=== PATIENT | female | born 1970 ===

== ENCOUNTER → 2020-01-23 | Outpatient (CLI) | payer OTHER ==
[~2020-01-23] VITALS: Ht 160 cm; Wt 68.0 kg
[~2020-01-23] MED LIST: AMBIEN 10 MG TA10 MG PO; IMITREX100 MG PO; LIPITOR40 MG PO; NORCO 10-325 T1 EAC1 PO; NORCO 10-325 T1 EACH PO; TOPAMAX100 MG PO; ZOLOFT 50 MG TA50 M1 PO
--- NOTE | ~2020-01-23 | HPC ---
[facility] [place] [address] PAIN MANAGEMENT CONSULTATION Name: OMAR CARRERA Room #: REG [facility] M..#: [id number] Admission: 01/23/20 Attend Phys: Gus Daugherty DO Discharge: Date of : 70 Report #: [id number] THIS REPORT FOR: cc: MILAN AVILA Physician not on staff uGs Daugherty DO ~ CC: Gus Cordova MD Physician staff DATE OF SERVICE: 01/23/2020 REFERRING PHYSICIAN: Payal Cordova MD CHIEF COMPLAINT: Low back pain, right lower extremity pain. HISTORY OF PRESENT ILLNESS: As you know, the patient is a very pleasant 49-year-old female who has been followed by [facility] at our [facility] office for years. She originally was seen by my partner, Dr. Robson Daugherty, who trial the patient with epidural injections and medication management. When Dr. Daugherty relocated to his [facility], the patient was transferred the care to my services there at [facility]. We have been treating her with medication management, and ultimately, she underwent medial branch nerve blocks of the right L3, L4 and L5 with good efficacy. She completed 2 series of medial branch blocks with excellent benefit. She returned to the clinic to undergo radiofrequency lesioning of the medial branch nerves on the right side when we had complications with our machinery. This precluded us from completing the radiofrequency lesioning process. It was after that appointment that the patient found out she was out of network for the clinic at [facility] with changes in her insurance and she was left with fairly extensive bills. She transferred her care to our clinic here at [facility] as they have contracts established with her insurance. She follows up today in followup visit reporting pain score at about 7/10. She is interested in undergoing radiofrequency lesioning of the right L3, L4 and L5 medial branch nerves as she sought excellent benefit with the medial branch blocks, both performed at [facility]. She returns to discuss the options for undergoing this procedure here at [place]. ALLERGIES: MINOCYCLINE, SULFA AND PROCARDIA. CURRENT MEDICATIONS: Atorvastatin, Imitrex, ibuprofen, tizanidine, Topamax, Lexapro, vitamin E, spironolactone, and hydrocodone. SOCIAL HISTORY: The patient denies tobacco, alcohol or IV illicit drug use. [address] [address] PAIN MANAGEMENT CONSULTATION Name: OMAR CARRERA Room #: REG EMMANUELLE oL#: [id number] Admission: 01/23/20 Attend Phys: Gus Daugherty DO Discharge: Date of : 70 Report #: [id number] She reports she is working, not receiving workmen's compensation, unaccompanied today. IMAGING: No new imaging available. PHYSICAL EXAMINATION: VITAL SIGNS: Blood pressure 123/85, pulse 79, respiratory rate 16 and unlabored. The patient is 100% on room air. Height 5 feet 3 inches tall, weight 150 pounds, BMI calculated 26.6. GENERAL: Well-developed, well-nourished, well-hydrated 49-year-old female appearing her stated age. Pain is rated today at around 7/10. HEENT: Normocephalic, atraumatic. Pupils equal, round and reactive to light. Extraocular muscles are intact. NEUROLOGIC: Speech fluent. The patient deemed a good historian. LUNGS: Clear, no wheeze, rhonchi or rales. CARDIOVASCULAR: Regular. No appreciable gallop or rub. ABDOMEN: Soft, mildly obese, normoactive bowel sounds. EXTREMITIES: Show no clubbing, no cyanosis. No appreciable edema. MUSCULOSKELETAL: Lower extremity strength equal and symmetrical 5/5, intact to light touch from L1 through S2 dermatomes. Seated straight leg raising negative. Supine straight leg raising negative. Reuben's test is negative. Modified Gaenslen's positive for axial low back pain over the right. There is some mild palpatory tenderness over the right facet joint at L4-L5 and L5-S1 when compared to left. Lumbar provocation testing including extension, rotation, and lateral flexion to the right, all intensify axial back pain consistent with facet arthropathy. ASSESSMENT: 1. Lumbosacral spondylosis without radiculopathy. 2. Facet arthropathy of the lumbar spine. 3. Chronic low back pain. 4. Opioid dependency. PLAN: 1. The patient returns today in followup visit here at our [facility] office to discuss the possibility of moving forward with radiofrequency lesioning of medial branch nerves on the right side. The patient successfully completed 2 medial branch block procedures at my [facility] office, both of which provided about 80% improvement in overall pain consistent with medial branch mediated facet arthropathy pain. The patient was established a radiofrequency lesioning date at our [facility] office, but due to complications with our machinery, she was unable to complete the process. We had to abort the procedure midway as the radiofrequency lesioning device was causing electrical current to be flowing through the patient even though the device was not on. We aborted the procedure that day and had plans to have the patient return in 2 weeks. The patient in the interim received bills from [address] [address] PAIN MANAGEMENT CONSULTATION Name: OMAR CARRERA Room #: REG [facility]#: [id number] Admission: 01/23/20 Attend Phys: Gus Daugherty DO Discharge: Date of : 70 Report #: [id number] [facility], stating that coverage of the procedure was not offered through her insurance and the bills became quite problematic. She changed her care to our clinic here at [facility], as we have agreements with her insurance company for a lesser charge. The patient has returned today to discuss this as an option. It has come to our attention that her insurance has 3 levels. If she goes to the [facility], she would be paying a 10% cost of the procedure. If she follows with us here at [facility], she pays 20% cost and I believe at the [facility] systems, it was a 30% cost. We discussed this with the patient today. We were unable to give an idea of exact cost of the procedure here at [facility], but she does wish to contact our billing office in regard to this issue before moving forward. 2. We have discussed with the patient that if she wishes to undergo radiofrequency lesioning, she could do so through the [facility] system. We would recommend their Pain Clinic at [facility] as a possible treatment site. This would allow the patient to undergo radiofrequency lesioning of the medial branch nerves on the right side and gain excellent analgesic benefit as seen with the medial branch blocks. She is going to consider this as an option. 3. We have planned to provide the patient with continuation of medication management at this time with the understanding that ultimately will be weaning off of opioids, especially if we gain the efficacy we had with the medial branch blocks after radiofrequency lesioning. The patient is agreeable with the weaning of medications once radiofrequency lesioning process has been completed. The following prescriptions were provided to the patient today. We reviewed the fact that opiate medications are being used to provide analgesia adequate to support activities of daily living, not attempting to achieve a specific pain score on the 0-10 Visual Analog Scale. The current opiate medications are providing sufficient analgesia to allow the patient to participate in activities of daily living. The patient is not exhibiting any aberrant behavior suggestive of drug diversion. The patient is not having any adverse reactions to medications. The patient is not suffering from daytime somnolence or mental acuity changes. The patient is managing opiate-induced constipation with appropriate ioka-hgh-pywsnud agents and dietary considerations. The patient was counseled on concern for caution with operating a motor vehicle while using opiate medications. A physical exam was performed and the patient's functional status was evaluated. All patients with back pain were advised against the bed rest greater than 4 days and were advised to return to normal activities. Pain score assessment was noted and the treatment plan was reviewed with the patient. All current medications, both prescribed and OTC were reviewed and reconciled on the electronic medical record. Tobacco screening was accomplished and smoking cessation was advised when indicated. BMI was noted and diet/exercise modification was recommended for all patients following outside normal parameters. [address] [address] PAIN MANAGEMENT CONSULTATION Name: KANDI CARRERAN Room #: REG EMMANUELLE Blanchard#: [id number] Admission: 01/23/20 Attend Phys: Gus Daugherty DO Discharge: Date of : 70 Report #: [id number] I reviewed with the patient today their responsibilities to safeguard prescription medications, reviewed their responsibility to utilize medications only as prescribed by the physician. They are to seek and receive pain medications only from 1 physician group ( [facility]). They are to use 1 pharmacy and keep the clinic informed if they change pharmacies. Their responsibilities include making followup visits in a timely fashion and to avoid abrupt discontinuation of medication usage. Their responsibilities further include bringing their medications (bottles from the pharmacy with residual pills) to the visit for possible confirmation of pill counts and the patient understands it is their responsibility to submit to random drug screens to ensure both that the medications prescribed are present, and that no other controlled substances are present. All prescriptions provided today were generated electronically. The patient was provided prescription of hydrocodone/acetaminophen 10/325 one tab p.o. q.6 hours p.r.n. for pain. I have given the patient #120 tablets to release today, 4 weeks from today, 8 weeks from today, 3 months' worth of medication. All prescriptions provided via e-scribed to local pharmacy. We will see the patient back in followup visit in 3 months for medication management and adjustments in the therapy, assuming she has completed radiofrequency lesioning through the [facility] system. If she wishes to return to our clinic for radiofrequency lesioning, we will accommodate as quickly as possible her return visit to undergo that procedure. By: [id number] Gus Daugherty DO /nt
[2020-01-23 12:38] VITALS: BP 123/85
--- NOTE | 2020-01-23 12:51 | NUR ---
Pain Clinic Assessment: 1. History of Osteoarthritis: SPINE History of Rheumatoid Arthritis: Not Applicable 2. Height: 5 ft. 3 in. 160.0 cm. Weight: 150.0 lb. oz. 68.040 kg. Patient's BMI: 26.6 3. Vital Signs: BP: 123/85 Pulse: 79 Resp: 16 Temp: 02 Sat: 100 ECG Mon: 4. Pain Intensity: 7 5. Fall Risk: Dizziness: N Needs help standing or walking: N Fallen in the last 3 months: N Fall risk comments: 6. Patient on Blood Thinner: None 7. History of Hypertension: Y 8. Opioid Therapy greater than 6 weeks: Y Opiate Contract Signed: 9. Risk Assessment Tool Provided: LOW 10. Functional Assessment Tool: 11. Recreational Drug Use: Never Drug Type: Tobacco Use: Never Smoker Tobacco Type: Amount or Packs/day: How Many Years: Alcohol Use: No Frequency: Quant:
== END ==
LOC: PAIN 06:55
PROVIDERS: ATTEND Anesthesiology Pain Medicine
DX: M47.817 Spondylosis without myelopathy or radiculopathy, lumbosacral region (principal); M79.604 Pain in right leg; F11.20 Opioid dependence, uncomplicated; Z88.8 Allergy status to other drugs, medicaments and biological substances; Z79.899 Other long term (current) drug therapy

== ENCOUNTER → 2020-05-06 | Outpatient (CLI) | payer OTHER ==
[~2020-05-06] VITALS: Ht 160 cm; Wt 77.9 kg
[~2020-05-06] MED LIST changes: +ADVIL200 M1 PO; +CLONAZEPAM 0.50.5 M1 PO; +LEXAPRO20 MG PO; +METAMUCIL0.4 GM; +SUPER THERAVIT1 EACH PO
--- NOTE | ~2020-05-06 | HPC ---
[facility] [place] [address] PAIN MANAGEMENT CONSULTATION Name: OMAR CARRERA Room #: REG EMMANUELLE ..#: [id number] Admission: 05/06/20 Attend Phys: Gus Daugherty DO Discharge: Date of : 70 Report #: [id number] THIS REPORT FOR: cc: Daria Zaman MD, Ammar MD Johnson, James E. DO ~ DATE OF SERVICE: 05/07/2020 REFERRING PHYSICIAN: Dr. Joel Watson. CHIEF COMPLAINT: Low back pain, right buttock and posterolateral thigh pain. HISTORY OF PRESENT ILLNESS: As you know, the patient is a 49-year-old female followed by [facility] since her initial visits at our [facility] office. She is followed by my partner originally Dr. Robson Daugherty and by myself for her chronic ongoing pain issues. It has been determined the patient is suffering from facet arthropathy of the lumbar spine, but due to her current insurance, she is unable to undergo procedures with our clinic as coverage is not available. She has to follow up with her healthcare system to receive these injections. She returns today to discuss whether or not she should continue to look towards medial branch blocks and radiofrequency lesioning. As indicated in prior evaluations, the patient did very well with medial branch blocks, in fact undergoing 2 different medial branch blocks before we realized that coverage was not going to be available for her at our clinics. We had planned for the patient to undergo radiofrequency lesioning as she saw significant improvement with her symptoms with the medial branch blocks, but again due to coverage, we could not perform the procedure. She returns to discuss possibility of undergoing procedure at [facility] pain management clinic, but is also requesting refill of medications. She is placing pain score today at 7/10. She has not had any new injury or trauma. ALLERGIES: MINOCYCLINE, SULFA AND PROCARDIA. CURRENT MEDICATIONS: Atorvastatin, Imitrex, ibuprofen, tizanidine, Topamax, Lexapro, vitamin E, spironolactone and hydrocodone. SOCIAL HISTORY: The patient denies tobacco, alcohol, IV or illicit drug use. She is working, not receiving workmen's compensation, unaccompanied today. IMAGING: No new imaging available. PHYSICAL EXAMINATION: VITAL SIGNS: Blood pressure 118/81, pulse 94, respiratory rate 16 and unlabored. The patient is 98% on room air. Height 5 feet 3 inches tall, weight 171.8 pounds, BMI calculated 30.4. GENERAL: Well-developed, well-nourished, well-hydrated 49-year-old female, [place] [address] PAIN MANAGEMENT CONSULTATION Name: OMAR CARRERA Room #: REG CL Lo#: [id number] Admission: 05/06/20 Attend Phys: Gus Daugherty DO Discharge: Date of : 70 Report #: [id number] appears stated age, pain is rated around 7/10. HEENT: Normocephalic, atraumatic. Pupils equal, round and reactive. The patient is wearing a mask in compliance with COVID-19 regulations. EXTREMITIES: Show no clubbing, no cyanosis. No appreciable edema. MUSCULOSKELETAL: Lower extremity strength is symmetrical 5/5, intact to light touch from L1 through S2 dermatomes. Seated straight leg raising negative. Supine straight leg raising negative. Reuben's test is negative. Modified Gaenslen's positive for axial low back pain. ASSESSMENT: 1. Lumbosacral spondylosis without radiculopathy. 2. Facet arthropathy of the lumbar spine. 3. Chronic low back pain. 4. Opioid dependency. PLAN: 1. The patient returns today in followup visit to discuss whether or not she should progress with interventional treatments or should she move forward with surgical options. Given that the symptoms that she is experiencing are due to facet arthropathy, I would not recommend surgical options at this juncture. She may be a candidate down the line, but I would recommend more conservative treatment utilizing radiofrequency lesioning. The patient sought excellent benefit with medial branch blocks x 2, but due to third [employer] party payer restrictions, the patient could not move forward with radiofrequency lesioning as she is not able to receive coverage at any of her hospitals, as she is part of the [facility]. She will need to seek evaluation through their pain clinics for treatment. We would recommend strongly the patient undergo medial branch radiofrequency lesioning as the first treatment course. They may need to reestablish efficacy with medial branch blocks and then move forward radiofrequency lesioning though given her efficacy, we would highly recommend this option of treatment over any other. The patient will seek evaluation through [facility]. 2. The patient and I did discuss that if she is going to be transferring her care to [facility] that having 2 pain physicians involved in her care is not a logical process. We would recommend that if she does follow up with her pain clinic at [facility] to continue medication management through their services. We have offered the patient a 3-month prescription of her hydrocodone at this time, so that she can establish care with [facility] and begin the process of treatment. We have been honored to follow her case for this extended period of time and will be releasing her care to the [facility] with the understanding that she will gain good analgesic treatment. The patient is agreeable with plan. 3. We reviewed the fact that opiate medications are being used to provide analgesia adequate to support activities of daily living, not attempting to achieve a specific pain score on the 0-10 Visual Analog Scale. The current opiate medications are providing sufficient analgesia to allow the patient to [facility] [address] [place] [place] [address] PAIN MANAGEMENT CONSULTATION Name: OMAR CARRERA Room #: REG EMMANUELLE Lo#: [id number] Admission: 05/06/20 Attend Phys: Gus Daugherty DO Discharge: Date of : 70 Report #: [id number] participate in activities of daily living. The patient is not exhibiting any aberrant behavior suggestive of drug diversion. The patient is not having any adverse reactions to medications. The patient is not suffering from daytime somnolence or mental acuity changes. The patient is managing opiate-induced constipation with appropriate riux-sqj-hkatebp agents and dietary considerations. The patient was counseled on concern for caution with operating a motor vehicle while using opiate medications. A physical exam was performed and the patient's functional status was evaluated. All patients with back pain were advised against the bed rest greater than 4 days and were advised to return to normal activities. Pain score assessment was noted and the treatment plan was reviewed with the patient. All current medications, both prescribed and OTC were reviewed and reconciled on the electronic medical record. Tobacco screening was accomplished and smoking cessation was advised when indicated. BMI was noted and diet/exercise modification was recommended for all patients following outside normal parameters. I reviewed with the patient today their responsibilities to safeguard prescription medications, reviewed their responsibility to utilize medications only as prescribed by the physician. They are to seek and receive pain medications only from 1 physician group ( [facility]). They are to use 1 pharmacy and keep the clinic informed if they change pharmacies. Their responsibilities include making followup visits in a timely fashion and to avoid abrupt discontinuation of medication usage. Their responsibilities further include bringing their medications (bottles from the pharmacy with residual pills) to the visit for possible confirmation of pill counts and the patient understands it is their responsibility to submit to random drug screens to ensure both that the medications prescribed are present, and that no other controlled substances are present. All prescriptions provided today were generated electronically. 4. The patient was provided a prescription of hydrocodone/acetaminophen 10/325 mg dose 1 tab p.o. q. 8 hours p.r.n. for pain. I have sent the patient #90 tablets releasing today, 4 weeks from today and 8 weeks from today, 3 months' worth of medication. The patient was advised to take the medication as directed, not to take the medication prophylactically. She can follow up with [facility] for continued treatment. We are hopeful the patient will see good and prolonged benefit with the proposed treatment options suggested here in and continued analgesic benefit with hydrocodone she takes for pain control. 5. We will be releasing the patient back to her primary care physician and her [address] [address] PAIN MANAGEMENT CONSULTATION Name: OMAR CARRERA Room #: REG EMMANUELLE Blanchard#: [id number] Admission: 05/06/20 Attend Phys: Gus Daugherty DO Discharge: Date of : 70 Report #: [id number] new pain physician, but will be available if she has adjustments in her insurance coverage if she wishes to return for treatment. By: [id number] Gus Daugherty DO /nt
[2020-05-06 08:36] VITALS: BP 118/81
--- NOTE | 2020-05-06 08:55 | NUR ---
Pain Clinic Assessment: 1. History of Osteoarthritis: SPINE History of Rheumatoid Arthritis: Not Applicable 2. Height: 5 ft. 3 in. 160.0 cm. Weight: 171.8 lb. oz. 77.928 kg. Patient's BMI: 30.4 3. Vital Signs: BP: 118/81 Pulse: 94 Resp: 16 Temp: 02 Sat: 98 ECG Mon: 4. Pain Intensity: 7 5. Fall Risk: Dizziness: N Needs help standing or walking: N Fallen in the last 3 months: N Fall risk comments: 6. Patient on Blood Thinner: None 7. History of Hypertension: Y 8. Opioid Therapy greater than 6 weeks: Y Opiate Contract Signed: 9. Risk Assessment Tool Provided: LOW 10. Functional Assessment Tool: 11. Recreational Drug Use: Never Drug Type: Tobacco Use: Never Smoker Tobacco Type: Amount or Packs/day: How Many Years: Alcohol Use: No Frequency: Quant:
== END ==
LOC: PAIN 06:46
PROVIDERS: ATTEND Anesthesiology Pain Medicine
DX: M47.27 Other spondylosis with radiculopathy, lumbosacral region (principal); G89.29 Other chronic pain; F11.20 Opioid dependence, uncomplicated; M79.651 Pain in right thigh; Z88.8 Allergy status to other drugs, medicaments and biological substances; Z79.899 Other long term (current) drug therapy

== ENCOUNTER → 2020-07-30 | Outpatient (CLI) | payer OTHER ==
[~2020-07-30] VITALS: Ht 160 cm; Wt 70.0 kg
[~2020-07-30] MED LIST changes: +SPIRONOLACTONE50 MG PO
[2020-07-30 08:07] VITALS: BP 121/86
--- NOTE | 2020-07-30 08:11 | NUR ---
Pain Clinic Assessment: 1. History of Osteoarthritis: SPINE History of Rheumatoid Arthritis: Not Applicable 2. Height: 5 ft. 3 in. 160.0 cm. Weight: 154.4 lb. oz. 70.035 kg. Patient's BMI: 27.4 3. Vital Signs: BP: 121/86 Pulse: 95 Resp: 16 Temp: 02 Sat: 99 ECG Mon: 4. Pain Intensity: 6 5. Fall Risk: Dizziness: N Needs help standing or walking: N Fallen in the last 3 months: N Fall risk comments: 6. Patient on Blood Thinner: None 7. History of Hypertension: Y 8. Opioid Therapy greater than 6 weeks: Y Opiate Contract Signed: 9. Risk Assessment Tool Provided: LOW 10. Functional Assessment Tool: 11. Recreational Drug Use: Never Drug Type: Tobacco Use: Never Smoker Tobacco Type: Amount or Packs/day: How Many Years: Alcohol Use: No Frequency: Quant:
--- NOTE | 2020-08-01 14:52 | HPC ---
[facility] [address] [place] [address] PAIN MANAGEMENT CONSULTATION Name: OMAR CARRERA Room #: REG Suzette M.R.#: [id number] Admission: 07/30/20 Attend Phys: Gus Daugherty DO Discharge: Date of : 70 Report #: [id number] THIS REPORT FOR: cc: Daria Zaman MD, Ammar MD Johnson, James E. DO ~ DATE OF SERVICE: 07/30/2020 CHIEF COMPLAINT: Low back pain, right buttock, posterolateral thigh and anterior thigh pain. HISTORY OF PRESENT ILLNESS: As you know, the patient is a 49-year-old female followed by [facility] at our clinic at [facility]. She started treatment with my partner, Dr. Robson Daugherty, and transferred her care to my services after Dr. Robson Daugherty left our clinic. She has been continued on medication management, undergone interventional treatments, all of which have provided benefit. At our last visit, we discussed continuation of medication management and further imaging. Unfortunately, due to some financial concerns, the patient was unable to undergo the MRI requested. She has been doing an excellent job at losing weight. 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 She returns today requesting continuation of medication management to assist in her pain control. She states the combination of utilizing back brace as well, exercising and weight loss improves her symptoms while she is active. She continues to experience pain at a level of anywhere up to 6/10 depending on activity, it is typically in the late afternoons consistent with facet arthropathy and possible exacerbation of lumbar radiculopathy. She is denying side effects to medication including sleepiness, disorientation, confusion, mental slowing. She is here today talking with our nurse without any difficulties. She voices no concerns in regards to medications at this point. ALLERGIES: MINOCYCLINE, SULFA AND PROCARDIA. CURRENT MEDICATIONS: Spironolactone 50 mg once a day, hydrocodone 10/325 one tab every 8 hours p.r.n. for pain, multivitamin 1 tab per day, Metamucil one capsule per day, ibuprofen 800 mg 3 times a day, clonazepam 0.5 mg once a day, escitalopram 20 mg once a day, Imitrex 100 mg p.r.n., atorvastatin 40 mg per day, Topamax 100 mg once a day. SOCIAL HISTORY: The patient continues to deny tobacco, alcohol, IV or illicit drug use. She is working, not receiving workmen's compensation. She is unaccompanied at today's visit. IMAGING: No new imaging available. PHYSICAL EXAMINATION: [place] [address] PAIN MANAGEMENT CONSULTATION Name: OMAR CARRERA Room #: REG EMMANUELLE Blanchard#: [id number] Admission: 07/30/20 Attend Phys: Gus Daugherty DO Discharge: Date of : 70 Report #: [id number] VITAL SIGNS: Blood pressure 121/86, pulse 95, respiratory rate 16 and unlabored. The patient is 99% on room air. Height 5 feet 3 inches tall, weight 154.4 pounds, and BMI calculated 27.4. GENERAL: Well-developed, well-nourished, well-hydrated 49-year-old female appearing stated age. She is in no acute distress, awake, alert and oriented x 3. Current pain score is rated at 6/10. HEENT: Normocephalic, atraumatic. Pupils equal, round, and responsive. The patient is wearing a mask in compliance with COVID-19 regulations. EXTREMITIES: Show no clubbing, no cyanosis. No appreciable edema. MUSCULOSKELETAL: Lower extremity strength is symmetrical 5/5, intact to light touch, again from L1 through S2 dermatomes. Straight leg raising is negative, both in the seated and supine position. Reuben's test is negative. Lumbar provocation testing is met with increasing axial back pain on the right with radiation towards the buttock area. ASSESSMENT: 1. Lumbosacral spondylosis without current radiculopathy. 2. Facet arthropathy of the lumbar spine. 3. Chronic low back pain. 4. Reports of intermittent lumbar radiculopathy. 5. Opioid dependency. 6. Complicated medication management utilizing scheduled medications. PLAN: 1. The patient returns today in followup visit where we had a very long discussion in regards to ongoing treatment for axial back pain. The patient has been doing her part to decrease her weight. She is now down 17 pounds. She is participating in daily exercise routine. She does have to use a back brace during those exercises and I encouraged her to continue this activity. Her hope is to lose another 20 pounds, which will put her in a very good position from strengths and weight standpoint. We encouraged her to continue. She is utilizing diet changes and exercise and we encouraged her to continue this activity. We are hopeful the patient will continue to lose the weight she has determine she wish to lose as this will improve her axial back pain. 2. The patient did not undergo MRI of the lumbar spine as we had requested at her last visit. There has been some things that cropped up that have made it so that she could not undergo the imaging over the last 3 months. She is going to consider undergoing the imaging over the next month to month and a half. If she does, she will contact our clinic, so that we can look for the results. 3. We reviewed the fact that opiate medications are being used to provide analgesia adequate to support activities of daily living, not attempting to achieve a specific pain score on the 0-10 Visual Analog Scale. The current opiate medications are providing sufficient analgesia to allow the patient to participate in activities of daily living. The patient is not exhibiting any aberrant behavior suggestive of drug diversion. The patient is not having any adverse reactions to medications. The patient is not suffering from daytime [facility] [address] [place] [address] PAIN MANAGEMENT CONSULTATION Name: KANDI CARRERAN Room #: REG [facility]..#: [id number] Admission: 07/30/20 Attend Phys: Gus Daugherty DO Discharge: Date of : 70 Report #: [id number] somnolence or mental acuity changes. The patient is managing opiate-induced constipation with appropriate hdth-zya-lpidgtk agents and dietary considerations. The patient was counseled on concern for caution with operating a motor vehicle while using opiate medications. A physical exam was performed and the patient's functional status was evaluated. All patients with back pain were advised against the bed rest greater than 4 days and were advised to return to normal activities. Pain score assessment was noted and the treatment plan was reviewed with the patient. All current medications, both prescribed and OTC were reviewed and reconciled on the electronic medical record. Tobacco screening was accomplished and smoking cessation was advised when indicated. BMI was noted and diet/exercise modification was recommended for all patients following outside normal parameters. I reviewed with the patient today their responsibilities to safeguard prescription medications, reviewed their responsibility to utilize medications only as prescribed by the physician. They are to seek and receive pain medications only from 1 physician group ( [facility]). They are to use 1 pharmacy and keep the clinic informed if they change pharmacies. Their responsibilities include making followup visits in a timely fashion and to avoid abrupt discontinuation of medication usage. Their responsibilities further include bringing their medications (bottles from the pharmacy with residual pills) to the visit for possible confirmation of pill counts and the patient understands it is their responsibility to submit to random drug screens to ensure both that the medications prescribed are present, and that no other controlled substances are present. All prescriptions provided today were generated electronically. 4. The patient was provided prescription of hydrocodone 10/325 one tab p.o. q. 8 hours p.r.n. for pain. I have given the patient #90 tablets to release today, 4 weeks from today and 8 weeks from today, 3 months' worth of medication. We have cautioned the patient not to utilize her clonazepam in conjunction with her hydrocodone as the polypharmacy can lead to side effects that can be quite detrimental including respiratory depression, dysphoric effects and disorientation. We recommend that she discontinue the concomitant use of benzodiazepines with opioid medication. The patient will discuss this with her psychiatrist who is providing this medication. 5. See the patient back in followup visit in 3 months for medication management. If she does undergo imaging, we would like to have the patient contact our clinic, so we know that the imaging is available and review those findings. <ELECTRONICALLY SIGNED> By: Gus Daugherty DO 08/01/20 1452 [id number] Gus Daugherty DO /nt
== END ==
LOC: PAIN 06:44
PROVIDERS: ATTEND Anesthesiology Pain Medicine
DX: M47.27 Other spondylosis with radiculopathy, lumbosacral region (principal); G89.29 Other chronic pain; Z79.899 Other long term (current) drug therapy; Z79.891 Long term (current) use of opiate analgesic; Z88.2 Allergy status to sulfonamides; Z88.8 Allergy status to other drugs, medicaments and biological substances; Z88.1 Allergy status to other antibiotic agents

== ENCOUNTER → 2020-10-21 | Outpatient (CLI) | payer OTHER ==
[~2020-10-21] VITALS: Ht 160 cm; Wt 64.7 kg
[~2020-10-21] MED LIST changes: +VYEPTI100 MG/1 M IV
[2020-10-21 08:11] VITALS: BP 120/84
--- NOTE | 2020-10-21 08:30 | NUR ---
Pain Clinic Assessment: 1. History of Osteoarthritis: SPINE History of Rheumatoid Arthritis: Not Applicable 2. Height: 5 ft. 3 in. 160.0 cm. Weight: 142.6 lb. oz. 64.683 kg. Patient's BMI: 25.3 3. Vital Signs: BP: 120/84 Pulse: 71 Resp: 14 Temp: 02 Sat: 100 ECG Mon: 4. Pain Intensity: 7 5. Fall Risk: Dizziness: N Needs help standing or walking: N Fallen in the last 3 months: N Fall risk comments: 6. Patient on Blood Thinner: None 7. History of Hypertension: Y 8. Opioid Therapy greater than 6 weeks: Y Opiate Contract Signed: 9. Risk Assessment Tool Provided: LOW 10. Functional Assessment Tool: 11. Recreational Drug Use: Never Drug Type: Tobacco Use: Never Smoker Tobacco Type: Amount or Packs/day: How Many Years: Alcohol Use: No Frequency: Quant:
--- NOTE | 2020-10-22 08:42 | HPC ---
[facility] [address] [place] [address] PAIN MANAGEMENT CONSULTATION Name: OMAR CARRERA Room #: REG [facility] M..#: [id number] Admission: 10/21/20 Attend Phys: Veronica Parks Discharge: Date of : 70 Report #: [id number] THIS REPORT FOR: cc: Daria Zaman MD,Veronica Matt MD ~ DOC #: [id number] cc: Daria Zaman MD, Gus Daugherty, DO Veronica Parks NP DATE OF SERVICE: 10/21/2020 CHIEF COMPLAINT: Low back pain, right leg pain, and anterior thigh pain. HISTORY OF PRESENT ILLNESS: As you know, this is a 50-year-old female who returns to the pain clinic today for renewal of her opioid medications. Today, she is reporting a pain score 7/10. She reports significant pain in her lower back that radiates down her legs, most particular in her right thigh. She describes her pain as an aching pressure, stabbing sensation that is worse with activity, standing or walking. She believes that going down the stairs is more painful for her leg than going up. She has been trying to exercise and lose weight, which she has continued to do to help alleviate some of her pain. Today, she is down 12 pounds since her last visit. She reports this has been beneficial, but is unable to strengthen her core due to increasing back pain. Today, she reports having difficulty sleeping at night due to the pain waking her up. She also complains of some GI upset the last week and has stopped her ibuprofen. She believes this has caused an increase in her pain slightly as well. She denies any daytime somnolence or constipation as a result of her opioid medications. ALLERGIES: SULFA. CURRENT LIST OF MEDICATIONS: Vyepti every 3 months, hydrocodone 10/325 t.i.d. p.r.n., spironolactone, multivitamin, Metamucil, clonazepam, Lexapro, Imitrex, Lipitor, Topamax. PQRS: 1. She has a history of osteoarthritic changes in her spine. Denies any rheumatoid arthritis. 2. Height is 5 feet 3 inches, weight is 142. BMI is 25. 3. Vital signs; 120/84, pulse is 71, respirations 14, oxygen sat is 100. 4. Pain score 7/10. 5. Denies dizziness, does not need help walking or standing, has not fallen in the last 3 months. 6. Patient is not on any blood thinners, but does have a history of hypertension. 7. Opiate therapy is greater than six weeks and there is an opioid signed [address] [address] PAIN MANAGEMENT CONSULTATION Name: OMAR CARRERA Room #: REG EMMANUELLE Blanchard#: [id number] Admission: 10/21/20 Attend Phys: Veronica Parks Discharge: Date of : 70 Report #: [id number] contract on the chart. 8. Risk assessment is low. Functional assessment is 40/70. 9. Recreational drug use, she denies. She is not a smoker and does not drink alcohol. According to the prescription monitoring system, the patient is filling appropriately. She is due to fill her medications next week, filling them in a timely fashion from Dr. Daugherty. She does take occasional clonazepam on a very p.r.n. basis and we did discuss the risk of these 2 medications together. We will collect a random drug screen later this year on this patient. PHYSICAL EXAMINATION: GENERAL: This is alert and orientated, well-developed, well-nourished, well-hydrated, 50-year-old female who appears her stated age, rating her pain score today at 7/10. She is a good historian. HEENT: Normocephalic, atraumatic. Pupils equal, round and reactive to light. She is wearing a mask. EXTREMITIES: No clubbing, no cyanosis, no edema. MUSCULOSKELETAL: Lumbar provocation testing is met with axial back pain on the right. Straight leg raising is negative. Lower extremity strength is symmetrical at 5/5. Pain radiates into the right thigh, posteriorly and anteriorly. ASSESSMENT: 1. Lumbar sacral spondylosis with intermittent radiculopathy. 2. Facet arthroscopy of the lumbar spine. 3. Chronic low back pain. 4. Complicated medical management utilizing scheduled opioid medications. We reviewed the fact that opiate medications are being used to provide analgesia adequate to support activities of daily living, not attempting to achieve a specific pain score on the 0-10 Visual Analog Scale. The current opiate medications are providing sufficient analgesia to allow the patient to participate in activities of daily living. The patient is not exhibiting any aberrant behavior suggestive of drug diversion. The patient is not having any adverse reactions to medications. The patient is not suffering from daytime somnolence or mental acuity changes. The patient is managing opiate-induced constipation with appropriate qkds-bvw-corolhe agents and dietary considerations. The patient was counseled on concern for caution with operating a motor vehicle while using opiate medications. PLAN: 1. We discussed treatment options with the patient today. The patient has stopped her ibuprofen due to some GI upset and has been off one week with no resolve in symptoms. I encouraged her to try tsxs-qbo-nmitttf antacids, but also if the pain continues greater than one week, to contact her primary care [facility] [address] [place] [address] PAIN MANAGEMENT CONSULTATION Name: OMAR CARRERA Room #: REG CLSuzette Jaramillo.#: [id number] Admission: 10/21/20 Attend Phys: Veronica Parks Discharge: Date of : 70 Report #: [id number] doctor. We discussed more stomach friendly anti-inflammatory medications such as meloxicam and Celebrex. The patient reports they have not been as effective as ibuprofen 800 mg. We did discuss fnkm-kvj-rhdcoix Voltaren gel to utilize on her joints that are problematic for her pain. The patient may try that while she has stopped her ibuprofen. 2. We will continue her on her hydrocodone 10/325, #90. Scripts written for today, 4-week and 8-week release by Dr. Gus Daugherty and will be sent electronically. The patient denies any side effects from this medication. 3. We did discuss clonazepam and opioid medications, the benzodiazepine that she takes on a very as-needed basis. The patient reminded not to take these medications at the same time as it could lead to respiratory depression. 4. Patient will follow up in 3 months. Time spent with the patient in consultation, reviewing recent studies and clinical notes and physician reports, physical examination and correlation of findings and medical documentation to determine possible treatment options, 15 minutes. Time spent in preparation for appointment, reviewing prescription monitoring reports, reviewing previous records and proposed treatment options, reviewing current medications, 5 minutes. Time spent preparing and sending electronic prescriptions that are appropriate with Dr. Gus Daugherty and documentation of visit and plan of treatment, 5 minutes. Total time spent 25 minutes. ROLF Valadez/SONYA <ELECTRONICALLY SIGNED> By: Veronica Parks 10/22/20 0842 0820 1918 Veronica Parks /nt
== END ==
LOC: PAIN 06:53
PROVIDERS: ATTEND Clinical Nurse Specialist Adult Health
DX: M47.26 Other spondylosis with radiculopathy, lumbar region (principal); G89.29 Other chronic pain; M79.661 Pain in right lower leg; Z79.891 Long term (current) use of opiate analgesic; Z79.899 Other long term (current) drug therapy; Z88.2 Allergy status to sulfonamides

== ENCOUNTER → 2021-01-27 | Outpatient (CLI) | payer OTHER ==
[~2021-01-27] VITALS: Ht 160 cm; Wt 63.9 kg
--- NOTE | ~2021-01-27 | HPC ---
[facility] [address] [place] [address] PAIN MANAGEMENT CONSULTATION Name: OMAR CARRERA Room #: REG EMMANUELLE M..#: [id number] Admission: 01/27/21 Attend Phys: Gus Daugherty DO Discharge: Date of : 70 Report #: [id number] THIS REPORT FOR: cc: Daria Zaman MD,Gus Villa MD, DO ~ cc: Daria Zaman MD DATE OF SERVICE: 01/27/2021 REFERRING PHYSICIAN: Daria Zaman MD CHIEF COMPLAINT: Low back pain, right leg pain, and anterior thigh pain. HISTORY OF PRESENT ILLNESS: As you know, the patient is a 50-year-old female reporting a longstanding history of low back pain, right leg and anterior thigh pain. She has been on opioid medication for an extended period of time. Initially seen by my partner, Dr. Robson Daugherty at our clinic at [facility] undergoing injection therapies without significant benefit. She has started treatment with my services after Dr. Robson Daugherty left the [place] area and she has been treated with medication management. She has also undergone radiofrequency lesioning of medial branch nerves of the lumbar spine without much in the way of improvement. She has undergone intraarticular facet injections to address chronic axial back pain with only transient benefit. She has undergone epidural injections prior with no benefit. We have agreed to continue the patient on medication management with the understanding that ultimately further treatment will be necessary. She returns today to discuss those further treatments. She is placing pain score today at a level of 7/10. States she is unable to go about activities of daily living due to ongoing pain. She describes the pain as aching pressure, stabbing, sharp and throbbing, exacerbated with twisting, coughing, standing, walking, stretching, improves with changing positioning, rest, ice, heat and cold compresses and medications. She returns today in followup visit to discuss treatment options. ALLERGIES: SULFA. CURRENT MEDICATIONS: Ambien 10 mg p.o. at bedtime, hydrocodone 10/325 t.i.d. p.r.n. pain, Vyepti every 3 months, spironolactone 50 mg once a day, multivitamin 1 tab per day, Metamucil 17 grams per day, Advil 200 mg b.i.d., escitalopram 20 mg once a day, sumatriptan 100 mg p.r.n., atorvastatin 40 mg per day, topiramate 100 mg twice a day. SOCIAL HISTORY: The patient reports herself a nonsmoker. Denies IV or illicit drug use. Denies any chronic alcohol use. She is working, not receiving workmen's compensation, unaccompanied today. IMAGING: No imaging available. [address] [address] PAIN MANAGEMENT CONSULTATION Name: OMAR CARRERA Room #: REG CL Lo#: [id number] Admission: 01/27/21 Attend Phys: Gus Daugherty DO Discharge: Date of : 70 Report #: [id number] PHYSICAL EXAMINATION: VITAL SIGNS: Blood pressure 124/86, pulse is 77, respiratory rate 14 and unlabored. The patient 100% on room air. Height 5 feet 3 inches tall, weight 140.8 pounds, BMI calculated 24.9. GENERAL: Well-developed, well-nourished, well-hydrated 50-year-old female appearing stated age, pain is rated today 7/10. HEENT: Normocephalic, atraumatic. Pupils equal, round and responsive. She is wearing a mask in compliance with COVID-19 regulations. EXTREMITIES: Show no clubbing, no cyanosis, no edema. MUSCULOSKELETAL: There is palpatory tenderness noted over the paraspinal musculature of lower lumbar spine on the right. Seated straight leg raising negative. Supine straight leg raising is negative. RUSSELL test is negative. Modified Gaenslen's positive for axial low back pain. Ankle clonus negative. Babinski is negative. Deep tendon reflexes are symmetrical at patella and Achilles. Gait appears normal. ASSESSMENT: 1. Lumbosacral spondylosis with intermittent radiculopathy. 2. Facet arthropathy of lumbar spine. 3. Complicated medication management utilizing scheduled medications. 4. Chronic intractable pain. PLAN: 1. The patient returns today in followup visit where we have discussed the waning efficacy of medication management. She states that now she is waking up at night due to ongoing pain issues. She has been started on Ambien, though we do not recommend Ambien with opioid medications. We have cautioned the patient in regards to our concerns in this issue. Polypharmacy can cause significant dysfunction. We would recommend the patient monitor carefully her response to the Ambien. As for the ongoing back pain, I do feel that further evaluation is necessary. We will begin with x-ray imaging and move towards MRI if necessary. The patient is agreeable. 2. We have increased the patient's hydrocodone from 3 times a day to 4 times a day. She is to take the last tablet just prior to bedtime. This should provide her at least 5-7 hours of relief of symptoms per her report and thus should improve overall pain that is waking her up at night. I recommend discontinuation of the Ambien unless it is absolutely necessary as the side effects of combination of medication can be deleterious. The patient was provided a prescription of hydrocodone 10/325 four times a day on a p.r.n. basis. I have given her #120 tablets to release today and 4 weeks from today, 2 months' worth of medication. The patient was advised to take the medication only when necessary, not to take the medication prophylactically. Prescription sent via e-scribe to local pharmacy. 3. The patient will be sent for x-ray imaging of the thoracolumbar area. We will review those imaging as quickly as possible. The patient has to obtain [address] [address] PAIN MANAGEMENT CONSULTATION Name: OMAR CARRERA Room #: REG EMMANUELLE Blanchard#: [id number] Admission: 01/27/21 Attend Phys: Gus Daugherty DO Discharge: Date of : 70 Report #: [id number] x-ray imaging through the [employer]'s system based on her insurance. She is to contact our clinic once she has completed the x-ray and we will review those findings. If findings are such that I need further imaging, we look towards MRI of the lumbar spine without contrast. The patient is agreeable with this plan. 4. Once the patient has had imaging studies completed, we will review those findings. If surgical options are necessary, I would recommend a surgical consultation. The patient is agreeable with this plan. I am hopeful that the findings of the imaging will provide us with better and clear picture of the pathology that exists and the treatment options that might be efficacious. 5. We will see the patient back in followup visit once she has completed imaging and discuss the efficacy of the adjustments in medication made today and whether or not options from a surgical standpoint will be necessary. By: 0800 0930 Gus Daugherty DO /nt
[2021-01-27 08:08] VITALS: BP 124/86
--- NOTE | 2021-01-27 08:15 | NUR ---
Pain Clinic Assessment: 1. History of Osteoarthritis: SPINE History of Rheumatoid Arthritis: Not Applicable 2. Height: 5 ft. 3 in. 160.0 cm. Weight: 140.8 lb. oz. 63.866 kg. Patient's BMI: 24.9 3. Vital Signs: BP: 124/86 Pulse: 77 Resp: 14 Temp: 02 Sat: 100 ECG Mon: 4. Pain Intensity: 7 5. Fall Risk: Dizziness: N Needs help standing or walking: N Fallen in the last 3 months: N Fall risk comments: 6. Patient on Blood Thinner: None 7. History of Hypertension: Y 8. Opioid Therapy greater than 6 weeks: Y Opiate Contract Signed: 9. Risk Assessment Tool Provided: LOW 10. Functional Assessment Tool: 11. Recreational Drug Use: Never Drug Type: Tobacco Use: Never Smoker Tobacco Type: Amount or Packs/day: How Many Years: Alcohol Use: No Frequency: Quant:
== END ==
LOC: PAIN 06:46
PROVIDERS: ATTEND Anesthesiology Pain Medicine
DX: M47.27 Other spondylosis with radiculopathy, lumbosacral region (principal); G89.4 Chronic pain syndrome; Z79.891 Long term (current) use of opiate analgesic; Z79.899 Other long term (current) drug therapy

== ENCOUNTER → 2021-03-25 | Outpatient (CLI) | payer OTHER ==
[~2021-03-25] VITALS: Ht 160 cm; Wt 66.2 kg
[~2021-03-25] MED LIST changes: +HYDROCODON-ACE1 EAC5 PO; +STRATTERA80 MG PO
[2021-03-25 08:48] VITALS: BP 114/80
--- NOTE | 2021-03-25 08:57 | NUR ---
Pain Clinic Assessment: 1. History of Osteoarthritis: SPINE History of Rheumatoid Arthritis: Not Applicable 2. Height: 5 ft. 3 in. 160.0 cm. Weight: 146.0 lb. oz. 66.225 kg. Patient's BMI: 25.9 3. Vital Signs: BP: 114/80 Pulse: 93 Resp: 14 Temp: 02 Sat: 99 ECG Mon: 4. Pain Intensity: 5 5. Fall Risk: Dizziness: N Needs help standing or walking: N Fallen in the last 3 months: Y Fall risk comments: 6. Patient on Blood Thinner: None 7. History of Hypertension: Y 8. Opioid Therapy greater than 6 weeks: Y Opiate Contract Signed: 9. Risk Assessment Tool Provided: LOW-2 10. Functional Assessment Tool: 11. Recreational Drug Use: Never Drug Type: Tobacco Use: Never Smoker Tobacco Type: Amount or Packs/day: How Many Years: Alcohol Use: No Frequency: Quant:
--- NOTE | 2021-03-31 10:04 | HPC ---
[facility] [place] [address] PAIN MANAGEMENT CONSULTATION Name: OMAR CARRERA Room #: REG EMMANUELLE M..#: [id number] Admission: 03/25/21 Attend Phys: Gus Daugherty DO Discharge: Date of : 70 Report #: [id number] THIS REPORT FOR: cc: Daria Zaman MD,Gus Villa MD, DO ~ cc: Daria Zaman MD DATE OF SERVICE: 03/25/2021 CHIEF COMPLAINT: Low back pain, right lower extremity pain. HISTORY OF PRESENT ILLNESS: As you know, the patient is a very pleasant 49-year-old female reporting longstanding history of low back pain, right lower extremity pain, and anterior thigh pain. The patient has been on chronic opioid medication for an extended period of time with benefit. She returns today in followup visit requesting next in the series of refills. The patient denies side effects to medication including sleepiness, disorientation, confusion, mental slowing or constipation. She feels the medications are working beneficially. She is placing her current pain score at anywhere as high as 5/10. She describes the pain as aching pressure, sharp, stabbing, and shooting. Pain is exacerbated with twisting, coughing, standing, walking, and stretching. Repositioning, heat, cold compresses, ice, rest and medications tend to improve pain. She returns today in followup visit requesting refill on medications. ALLERGIES: No known drug allergies. CURRENT MEDICATIONS: Ambien 10 mg p.o. at bedtime, hydrocodone 10/325 t.i.d. to q.i.d. p.r.n. pain, Vyepti every 3 months, spironolactone 50 mg once a day, multivitamin 1 tab per day, Metamucil 17 grams per day, Advil 200 mg b.i.d., escitalopram 20 mg per day, sumatriptan 100 mg p.r.n., atorvastatin 40 mg per day, topiramate 100 mg twice a day. SOCIAL HISTORY: The patient reports herself a nonsmoker. Denies IV or illicit drug use. Denies any chronic alcohol use. She is working, not receiving workmen's compensation, unaccompanied today. IMAGING: No new imaging available. PHYSICAL EXAMINATION: VITAL SIGNS: Blood pressure 114/80, pulse 93, respiratory rate 14 and unlabored. The patient is 99% on room air. Height 5 feet 3 inches tall, weight 146 pounds, BMI calculated 25.9. GENERAL: Well-developed, well-nourished, well-hydrated 49-year-old female appearing stated age, pain is rated today at 5/10. HEENT: Normocephalic, atraumatic. Pupils equal, round and responsive. She is wearing a mask in compliance with COVID-19 regulations and hospital policy. [address] [address] PAIN MANAGEMENT CONSULTATION Name: OMAR CARRERA Room #: REG [facility] Lo#: [id number] Admission: 03/25/21 Attend Phys: Gus Daugherty DO Discharge: Date of : 70 Report #: [id number] EXTREMITIES: Show no clubbing, no cyanosis, no edema. MUSCULOSKELETAL: Lower extremity strength equal and symmetrical, 5/5. No giveaway strength noted with hip flexion, knee extension bilaterally. Seated straight leg raising negative. Supine straight leg raising is negative. RUSSELL test is negative. Modified Gaenslen's positive for axial low back pain. ASSESSMENT: 1. Lumbosacral spondylosis with intermittent radiculopathy. 2. Facet arthropathy of lumbar spine. 3. Complicated medication management utilizing scheduled medications. 4. Chronic intractable pain. PLAN: 1. The patient returns today in followup visit requesting refill on medications. She feels the medications are working beneficially for pain control. She is utilizing 3-4 tablets per day p.r.n. for pain. She is denying side effects of sleepiness, disorientation, confusion, mental slowing or constipation with their use. She wishes to continue the medication at current dosing as she is apparently doing fairly well. She has not been able to return to any exercise program due to current office conditions requiring her to work more than 50-60 hours a week. She is hopeful that she will be able to return to her exercise program as she did notice benefit with its use. 2. We reviewed the fact that opiate medications are being used to provide analgesia adequate to support activities of daily living, not attempting to achieve a specific pain score on the 0-10 Visual Analog Scale. The current opiate medications are providing sufficient analgesia to allow the patient to participate in activities of daily living. The patient is not exhibiting any aberrant behavior suggestive of drug diversion. The patient is not having any adverse reactions to medications. The patient is not suffering from daytime somnolence or mental acuity changes. The patient is managing opiate-induced constipation with appropriate [id number] agents and dietary considerations. The patient was counseled on concern for caution with operating a motor vehicle while using opiate medications. A physical exam was performed and the patient's functional status was evaluated. All patients with back pain were advised against the bed rest greater than 4 days and were advised to return to normal activities. Pain score assessment was noted and the treatment plan was reviewed with the patient. All current medications, both prescribed and OTC were reviewed and reconciled on the electronic medical record. Tobacco screening was accomplished and smoking cessation was advised when indicated. BMI was noted and diet/exercise modification was recommended for all patients following outside normal parameters. I reviewed with the patient today their responsibilities to safeguard prescription medications, reviewed their responsibility to utilize medications [address] [address] PAIN MANAGEMENT CONSULTATION Name: OMAR CARRERA Room #: REG EMMANUELLE Blanchard#: [id number] Admission: 03/25/21 Attend Phys: Gus Daugherty DO Discharge: Date of : 70 Report #: [id number] only as prescribed by the physician. They are to seek and receive pain medications only from 1 physician group ( [facility]). They are to use 1 pharmacy and keep the clinic informed if they change pharmacies. Their responsibilities include making followup visits in a timely fashion and to avoid abrupt discontinuation of medication usage. Their responsibilities further include bringing their medications (bottles from the pharmacy with residual pills) to the visit for possible confirmation of pill counts and the patient understands it is their responsibility to submit to random drug screens to ensure both that the medications prescribed are present, and that no other controlled substances are present. All prescriptions provided today were generated electronically. 3. The patient was provided prescription of hydrocodone 10/325 mg dose 1 tab p.o. q.i.d. p.r.n. pain. I have given the patient #120 to release today, 8 weeks from today, 3 months worth of medication. I have advised the patient to take the medication only when pain is intolerable, not to rely on the medication prophylactically. 4. Plan to see the patient back in followup visit in 3 months for medication management. I did advise the patient if she wishes to return to undergo interventional treatments to address symptoms, she can do so at her earliest convenience. We have plans to see her back in followup visit in 3 months for medication management. <ELECTRONICALLY SIGNED> By: Gus Daugherty DO 03/31/21 [id number] Gus Daugherty DO /nt
== END ==
LOC: PAIN 08:37
PROVIDERS: ATTEND Anesthesiology Pain Medicine
DX: G89.29 Other chronic pain (principal); M47.26 Other spondylosis with radiculopathy, lumbar region; M47.27 Other spondylosis with radiculopathy, lumbosacral region; Z79.899 Other long term (current) drug therapy